=== PATIENT | female | born 1995 | race African-American/Black ===

== ENCOUNTER 2024-04-12 14:53 | Emergency (ER) | payer BC ==
[~2024-04-12] VITALS: Ht 162.6 cm; Wt 59.0 kg
[2024-04-12] MEDS: ACETAMINOPHEN ES 500 MG TABLET PO ONE (16:30)
[2024-04-12] MEDS: KETOROLAC TROMETHAMINE 15 MG/ML VIAL IM ONE (16:30)
[2024-04-12] MEDS ORDERED: KETOROLAC TROMETHAMINE 15 MG/ML VIAL ONE (16:30)
[2024-04-12] MEDS: CYCLOBENZAPRINE 10 MG TABLET PO ONE (16:30)
[2024-04-12] MEDS ORDERED: CYCLOBENZAPRINE 10 MG TABLET ONE (16:32)
[2024-04-12] MEDS ORDERED: ACETAMINOPHEN ES 500 MG TABLET ONE (16:32)
[2024-04-12] MEDS ORDERED: IBUP-1955 PO (17:27)
[2024-04-12] MEDS ORDERED: CYCL5TAB PO (17:27)
[2024-04-12] MEDS ORDERED: ACET-2605 PO (17:27)
[2024-04-12] MEDS: LIDOCAINE 5% (PATCH) 1 EA PATCH TP ONE (17:31)
[2024-04-12] MEDS ORDERED: LIDOCAINE 5% (PATCH) 1 EA PATCH TP ONE (17:32)
[2024-04-12 17:38] VITALS: TEMP 98
[2024-04-12 17:40] VITALS: BP 128/72; O2SAT 98
== END 2024-04-12 17:41 | disposition home or self-care (01) ==
LOC: ER 15:08
DX: S40.021A Contusion of right upper arm, initial encounter (principal); M25.511 Pain in right shoulder; X58.XXXA Exposure to other specified factors, initial encounter; Y93.89 Activity, other specified; Y92.89 Other specified places as the place of occurrence of the external cause; Y99.8 Other external cause status
CPT/HCPCS: 99285; 93971; 96372; J1885

== ENCOUNTER 2024-06-10 08:57 | Emergency (ER) | payer BC ==
[~2024-06-10] VITALS: Ht 162.6 cm; Wt 59.0 kg
[~2024-06-10 08:57] MED LIST: ACET-2605 PO; CYCL5TAB PO; IBUP-1955 PO
[2024-06-10 09:08] VITALS: BP 115/75; TEMP 97.9; O2SAT 99
[2024-06-10 10:05] LABS: BASOPHILS % (AUTO) 0.8 % (0.0-2.0); EOSINOPHILS # (AUTO) 0.1 K/uL (0.0-0.7); EOSINOPHILS % (AUTO) 1.7 % (0.0-6.0); HEMATOCRIT 37 % (33-45); LYMPHOCYTES # (AUTO) 1.3 K/uL (0.8-4.8); LYMPHOCYTES % (AUTO) 39.7 % (20.0-44.0); MEAN CORPUSCULAR HEMOGLOBIN 30 PG (26.0-33.0); MEAN CORPUSCULAR HGB CONC 33 g/dl (31.0-36.0); MEAN CORPUSCULAR VOLUME 91 fL (82-100); MONOCYTES # (AUTO) 0.3 K/uL (0.1-1.30); MONOCYTES % (AUTO) 9.3 % (2.0-12.0); NEUTROPHILS # (AUTO) 1.6 K/uL (1.8-8.9); NEUTROPHILS % (AUTO) 48.5 % (43.0-81.0); PLATELET COUNT (AUTO) 386 K/uL (150-450); RED BLOOD CELL COUNT(AUTO) 4.02 MIL/uL (4.0-5.2); RED CELL DISTRIBUTION WIDTH 15.6 % (11.5-15.0); WHITE BLOOD COUNT (AUTO) 3.3 K/uL (4.3-11.0)
[2024-06-10 10:22] LABS: CALCIUM, SERUM 9.2 mg/dL (8.5-10.1); CREATININE 0.8 mg/dL (0.6-1.3); MAGNESIUM 2.1 mg/dL (1.8-2.4); PHOSPHORUS 3.9 mg/dL (2.5-4.9); POTASSIUM 3.6 mmol/L (3.5-5.1)
[2024-06-10] MEDS ORDERED: KETOROLAC TROMETHAMINE 15 MG/ML VIAL ONE (10:25)
[2024-06-10] MEDS ORDERED: KETO10TA2 PO (10:33)
[2024-06-10] MEDS ORDERED: PANT40TA49 PO (10:33)
[2024-06-10] MEDS ORDERED: METH-647 GT (10:34)
[2024-06-10] MEDS ORDERED: FAMO20TA80 PO (10:34)
[2024-06-10] MEDS: KETOROLAC TROMETHAMINE 15 MG/ML VIAL IV ONE (10:36)
[2024-06-10] MEDS: KETOROLAC TROMETHAMINE 15 MG/ML VIAL IM ONE (10:48)
[2024-06-10] MEDS ORDERED: DICL100G34 TP (10:49)
== END 2024-06-10 11:36 | disposition home or self-care (01) ==
LOC: ER 09:02
DX: M62.838 Other muscle spasm (principal); R25.1 Tremor, unspecified
CPT/HCPCS: 99283; 96372; 85025; 80048; 83735; 84100; 36415; J1885